=== PATIENT | female | born 1955 | race Caucasian/White ===

== ENCOUNTER 2018-06-10 12:41 | Emergency (ER) | payer OTHER ==
[2018-06-10 12:52] VITALS: BP 136/72; PULSE 98; TEMP 98.6; BMI 29.7
[2018-06-10] MEDS ORDERED: DEXAMETHASONE 4 MG TABLET (FP) PO ONE (14:07)
[2018-06-10] MEDS ORDERED: traMADol HCL 50 MG TABLET PO ONE (14:07)
--- NOTE | 2018-06-10 14:08 | PDOC ---
*Physical Exam - Vital Signs Last Vital Signs Temp Pulse Resp BP Pulse Ox 98.6 F 98 H 24 H 136/72 96 06/10/18 12:49 06/10/18 12:49 06/10/18 12:49 06/10/18 12:49 06/10/18 12:49 ED Treatment Course - LABORATORY CBC & Chemistry Diagram: 06/10/18 15:09 06/10/18 15:09 Medical Decision Making - Medical Decision Making 06/10/18 14:26 62 yo F presenting with a complaint of severe RUE arm pain radiating to the chest Pt pain management physician called states that the patient has a pinched nerve Will give pain meds will image Will re assess 06/10/18 18:34 Laboratory Tests 06/10/18 06/10/18 15:08 15:09 WBC 11.0 H Hgb 16.1 H Hct 45.7 H Plt Count 242 Creatine Kinase 65 Troponin I < 0.02 EKG:NSR rate of 8 bpm, axis nml, intervals nml, no st elevation or depression Pt pain still severe Will try treating with morphine Will re assess *DC/Admit/Observation/Transfer Diagnosis at time of Disposition: Cervical radiculopathy - Discharge Dispostion Disposition: HOME Condition at time of disposition: Stable - Prescriptions Prescriptions: Lidocaine 5% Patch [Lidoderm -] 1 patch TP DAILY #7 patch Oxycodone HCl/Acetaminophen [Percocet 5-325 mg Tablet] 1 tab PO Q6H #16 tablet MDD 4 - Referrals Referrals: Noelle Wright MD [Primary Care Provider] - - Patient Instructions Printed Discharge Instructions: DI for Cervical Radiculopathy Additional Instructions: You were evaluated for your arm and chest pain It is most likely due to your pinched nerve Take the Percocet every 6 hours as need for pain. Do not drink or drive after taking this medication as it may make you drowsy You were also prescribed lidocaine patches; place this over the area that hurts and change it daily Try heating packs as well Follow up with your orthopedic doctor Return to the ED if you have worsening pain, numbness and tingling, weakness, or if you have any changes in your symptoms. - Post Discharge Activity
--- NOTE | 2018-06-10 14:26 | PDOC ---
History of Present Illness - General Chief Complaint: Chest Pain Stated Complaint: CHEST PAIN Time Seen by Provider: 06/10/18 14:02 History Source: Patient Exam Limitations: No Limitations Past History - Travel Traveled outside of the country in the last 30 days: No Close contact w/someone who was outside of country & ill: No - Past Medical History Allergies/Adverse Reactions: Allergies Allergy/AdvReac Type Severity Reaction Status Date / Time latex Allergy Hives Verified 06/10/18 12:48 meperidine HCl [From Demerol] AdvReac Vomiting Verified 06/10/18 12:48 Home Medications: Ambulatory Orders Amitriptyline HCl [Elavil -] 50 mg PO HS 06/10/18 Lidocaine 5% Patch [Lidoderm -] 1 patch TP DAILY #7 patch 06/10/18 Oxycodone HCl 10 mg PO QID PRN 06/10/18 Oxycodone HCl/Acetaminophen [Percocet 5-325 mg Tablet] 1 tab PO Q6H #16 tablet MDD 4 06/10/18 COPD: No - Surgical History Appendectomy: Yes - Suicide/Smoking/Psychosocial Hx Smoking History: Never smoked Number of Cigarettes Smoked Daily: 0 Hx Alcohol Use: No Review of Systems - Review of Systems Able to Perform ROS?: Yes Comments:: 06/10/18 14:04 CONSTITUTIONAL: Absent: fever, chills, diaphoresis, generalized weakness, malaise, loss of appetite HEENT: Absent: rhinorrhea, nasal congestion, throat pain, throat swelling, difficulty swallowing, mouth swelling, ear pain, eye pain, visual Changes CARDIOVASCULAR: Absent: chest pain, loss of consciousness, palpitations, irregular heart rate, peripheral edema RESPIRATORY: Absent: cough, shortness of breath, dyspnea with exertion, orthopnea, wheezing, stridor, hemoptysis GASTROINTESTINAL: Absent: abdominal pain, abdominal distension, nausea, vomiting, diarrhea, constipation, melena, hematochezia GENITOURINARY: Absent: dysuria, frequency, urgency, hesitancy, hematuria, flank pain, genital pain MUSCULOSKELETAL: Absent: myalgia, arthralgia, joint swelling SKIN: Absent: rash, itching, pallor HEMATOLOGIC/IMMUNOLOGIC: Absent: easy bleeding, easy bruising, lymphadenopathy, frequent infections ENDOCRINE: Absent: unexplained weight gain, unexplained weight loss, heat intolerance, cold intolerance NEUROLOGIC: Absent: headache, focal weakness or paresthesias, dizziness, unsteady gait, seizure, mental status changes, bladder or bowel incontinence PSYCHIATRIC: Absent: anxiety, depression, suicidal or homicidal ideation, hallucinations. Is the patient limited Cambodian proficient: No *Physical Exam - Vital Signs Last Vital Signs Temp Pulse Resp BP Pulse Ox 98.6 F 98 H 24 H 136/72 96 06/10/18 12:49 06/10/18 12:49 06/10/18 12:49 06/10/18 12:49 06/10/18 12:49 - Physical Exam Comments: 06/10/18 14:04 GENERAL: Well developed, well nourished. Awake and alert. No acute distress. HEENT: Normocephalic, atraumatic. PERRLA, EOMI. No conjunctival pallor. Sclera are non- icteric. Moist mucous membranes. Oropharynx is clear. NECK: Supple. Full ROM. No JVD. Carotid pulses 2+ and symmetric, without bruits. No thyromegaly. No lymphadenopathy. CARDIOVASCULAR: Regular rate and rhythm. No murmurs, rubs, or gallops. Distal pulses are 2+ and symmetric. PULMONARY: No evidence of respiratory distress. Lungs clear to auscultation bilaterally. No wheezing, rales or rhonchi. ABDOMINAL: Soft. Non-tender. Non-distended. No rebound or guarding. No organomegaly. Normoactive bowel sounds. MUSCULOSKELETAL Normal range of motion at all joints. No bony deformities or tenderness. No CVA tenderness. EXTREMITIES: No cyanosis. No clubbing. No edema. No calf tenderness. SKIN: Warm and dry. Normal capillary refill. No rashes. No jaundice. NEUROLOGICAL: Alert, awake, appropriate. Cranial nerves 2-12 intact. No deficits to light touch and temperature in face, upper extremities and lower extremities. No motor deficits in the in face, upper extremities and lower extremities. Normoreflexic in the upper and lower extremities. Normal speech. Toes are down- going bilaterally. Gait is normal without ataxia. PSYCHIATRIC: Cooperative. Good eye contact. Appropriate mood and affect. Moderate Sedation - Procedure Monitoring Vital Signs: Procedure Monitoring Vital Signs Temperature 98.6 F 06/10/18 12:49 Pulse Rate 98 H 06/10/18 12:49 Respiratory Rate 24 H 06/10/18 12:49 Blood Pressure 136/72 06/10/18 12:49 O2 Sat by Pulse Oximetry (%) 96 06/10/18 12:49 ED Treatment Course - LABORATORY CBC & Chemistry Diagram: 06/10/18 15:09 06/10/18 15:09 *DC/Admit/Observation/Transfer Diagnosis at time of Disposition: Cervical radiculopathy - Discharge Dispostion Disposition: HOME Condition at time of disposition: Stable Decision to Admit order: No - Referrals Referrals: Noelle Wright MD [Primary Care Provider] - - Patient Instructions Printed Discharge Instructions: DI for Cervical Radiculopathy Additional Instructions: You were evaluated for your arm and chest pain It is most likely due to your pinched nerve Take the Percocet every 6 hours as need for pain. Do not drink or drive after taking this medication as it may make you drowsy You were also prescribed lidocaine patches; place this over the area that hurts and change it daily Try heating packs as well Follow up with your orthopedic doctor Return to the ED if you have worsening pain, numbness and tingling, weakness, or if you have any changes in your symptoms. - Post Discharge Activity
[2018-06-10] MEDS ORDERED: DEXAMETHASONE SOD PHOSPHATE 4 MG/1 ML VIAL ONE (15:08)
[2018-06-10] MEDS ORDERED: traMADol HCL 50 MG TABLET ONE (15:08)
[2018-06-10 15:33] LABS: BASO % 0.5 % (0-2.0); EOS % 0.3 % (0-4.5); HEMATOCRIT 45.7 % (32.4-45.2); HEMOGLOBIN 16.1 GM/dL (10.7-15.3); LYMPH % 27.8 % (8-40); MCH 30.6 pg (25.7-33.7); MCHC 35.3 g/dl (32.0-36.0); MEAN CELL VOLUME 86.8 fl (80-96); MEAN PLT VOLUME 7.7 fl (7.5-11.1); MONO % 7.7 % (3.8-10.2); NEUT % 63.7 % (42.8-82.8); PLATELET COUNT 242 K/MM3 (134-434); RBC 5.27 M/mm3 (3.60-5.2); RDW 14.5 % (11.6-15.6)
[2018-06-10 16:04] LABS: ALBUMIN 4.1 g/dl (3.4-5.0); ALK PHOS 55 U/L (45-117); ANION GAP 8 MMOL/L (8-16); BILIRUBIN,TOTAL 0.6 mg/dL (0.2-1); BLOOD UREA NITROGEN 22 mg/dL (7-18); CALCIUM 9.2 mg/dL (8.5-10.1); CHLORIDE 102 mmol/L (98-107); CO2 27 mmol/L (21-32); CREATININE 0.8 mg/dL (0.55-1.3); GLUCOSE,RANDOM 92 mg/dL (74-106); POTASSIUM 4.2 mmol/L (3.5-5.1); SGOT/AST 14 U/L (15-37); SGPT/ALT 34 U/L (13-61); SODIUM 137 mmol/L (136-145)
[2018-06-10 16:11] LABS: INR 0.94 (0.83-1.09); PROTHROMBIN TIME (PATIENT) 11.1 SEC (9.7-13.0)
[2018-06-10] MEDS ORDERED: morphine CARPU-JECT 2 MG/1 ML DISP.SYRIN IM ONE (17:44)
[2018-06-10] MEDS ORDERED: morphine SULFATE 4 MG/ML VIAL ONE (18:26)
--- NOTE | 2018-06-10 18:58 | EKG ---
Test Reason : Blood Pressure : / mmHG Vent. Rate : 088 BPM Atrial Rate : 088 BPM P-R Int : 144 ms QRS Dur : 084 ms QT Int : 332 ms P-R-T Axes : 064 067 072 degrees QTc Int : 401 ms POOR DATA QUALITY, INTERPRETATION MAY BE ADVERSELY AFFECTED NORMAL SINUS RHYTHM NORMAL ECG WHEN COMPARED WITH ECG OF 15-JAN-2012 14:43, NO SIGNIFICANT CHANGE WAS FOUND Confirmed by MANUEL ARITA MD ([id number]) on 06/10/2018 6:58:25 PM Referred By: Confirmed By:MANUEL ARITA MD
== END 2018-06-10 19:12 | disposition home or self-care (01) ==
LOC: JER 12:41
PROC: 3E023NZ Introduction of Analgesics, Hypnotics, Sedatives into Muscle, Percutaneous Approach (ICD-10-PCS; principal; 2018-06-10)
DX: M54.12 Radiculopathy, cervical region (principal)
CPT/HCPCS: 36415; 72125-TC; 72128-TC; 80053; 82550; 84484; 85025; 85610; 93005; 93010; 99283-25

== ENCOUNTER 2018-10-28 18:40 | Emergency (ER) | payer OTHER ==
[2018-10-28 18:58] VITALS: BP 118/55; PULSE 88; TEMP 98.2; BMI 29.7
--- NOTE | 2018-10-28 19:01 | PDOC ---
Rapid Medical Evaluation Chief Complaint: CVA/TIA Time Seen by Provider: 10/28/18 18:54 Medical Evaluation: Allergies Allergy/AdvReac Type Severity Reaction Status Date / Time latex Allergy Hives Verified 10/28/18 18:54 meperidine HCl [From Demerol] AdvReac Vomiting Verified 10/28/18 18:54 Vital Signs Temp Pulse Resp BP Pulse Ox 98.2 F 88 17 118/55 L 95 10/28/18 18:54 10/28/18 18:54 10/28/18 18:54 10/28/18 18:54 10/28/18 18:54 10/28/18 18:59 I have performed a brief in-person evaluation of this patient. The patient presents with a chief complaint of: c/o slurred speech acute onset at 9P, states has cont pain to left side of face and headache pain with radiation to left hand Pertinent physical exam findings: A&Ox3, no obv neuro deficit but speech some slurred I have ordered the following: Ct/ EkG / labs The patient will proceed to the ED for further evaluation. 10/28/18 19:00 Discharge Disposition - Diagnosis Transient ischemic attack - Referrals Referrals: Noelle Wright MD [Primary Care Provider] - - Patient Instructions - Post Discharge Activity
--- NOTE | 2018-10-28 20:00 | PDOC ---
History of Present Illness - General Chief Complaint: CVA/TIA Stated Complaint: NUMBNESS LEFT SIDE Time Seen by Provider: 10/28/18 18:54 History Source: Patient Exam Limitations: No Limitations - History of Present Illness Initial Comments: 10/28/18 20:15 63 year old female with PMH tension headaches (1X/month), chronic low back pain presented to ED for headache since last night. Pt stated her headache was gradual in onset, located to her forehead/left face, worsening over the day today. Pt stated her headaches are usually located to her forehead, wrapping around like a band, alleviated with excedrin. Pt stated she did not take excedrin today, because she wanted her symptoms to be present for the Emergency Department. Pt admitted to a 20 minute episode of left facial and left hand ( all fingertips) numbness yesterday, that self-resolved. Allergies: meperdine, latex NIH Stroke Scale - Last Known Well Date/Time & Onset Date Last Known Well: 10/27/18 - Initial Evaluation Level of consciousness: Alert Ask patient the month and their age: Answers both correctly Ask patient to open & close eyes; make fist and let go: Obeys both correctly Best gaze (horizontal eye movement): Normal Visual field testing: No visual field loss Facial paresis (Show teeth/raise eyebrows/close eyes tight): Normal symmetrical movement Motor Function: Left Arm: Normal Motor Function: Right Arm: Normal (extends arm 90 (or 45) degrees for 10 seconds without drift Motor Function: Left Leg: Normal (extends leg 30 degrees for 5 seconds without drift) Motor Function: Right Leg: Normal (extends leg 30 degrees for 5 seconds without drift) Limb Ataxia: No ataxia Sensory(Use pinprick test arms,legs,trunk,face/side to side): Normal Best language (Describe picture, name items, read sentences): No Aphasia Dysarthria (read several words): Normal articulation Extinction and Inattention: No abnormality - Total Score NIH Stroke Scale Score: 0 Past History - Past Medical History Allergies/Adverse Reactions: Allergies Allergy/AdvReac Type Severity Reaction Status Date / Time latex Allergy Hives Verified 10/28/18 18:54 meperidine HCl [From Demerol] AdvReac Vomiting Verified 10/28/18 18:54 Home Medications: Ambulatory Orders Amitriptyline HCl [Elavil -] 50 mg PO HS 06/10/18 Lidocaine 5% Patch [Lidoderm -] 1 patch TP DAILY #7 patch 06/10/18 Oxycodone HCl 10 mg PO QID PRN 06/10/18 Oxycodone HCl/Acetaminophen [Percocet 5-325 mg Tablet] 1 tab PO Q6H #16 tablet MDD 4 06/10/18 Valacyclovir HCl [Valtrex -] 1,000 mg PO TID #21 tablet 10/28/18 COPD: No - Surgical History Appendectomy: Yes - Suicide/Smoking/Psychosocial Hx Smoking History: Never smoked Number of Cigarettes Smoked Daily: 0 Information on smoking cessation initiated: No Hx Alcohol Use: No Drug/Substance Use Hx: No Review of Systems - Review of Systems Able to Perform ROS?: Yes Comments:: 10/28/18 20:18 General: denied fever, chills, generalized weakness. HEENT: denied sore throat, rhinorrhea, ear pain. Heart: denied chest pain, palpitations, syncope, diaphoresis. Respiratory: denied shortness of breath, cough, sputum production, hemoptysis. Abdomen: denied abdominal pain, nausea, vomiting, diarrhea, constipation, blood in stool. : denied dysuria, increased urinary frequency, hematuria, urinary incontinence , flank pain. Back: denied back pain. Musculoskeletal: denied joint pain, muscle pain, joint swelling. Neurological: admitted to headache, numbness. denied dizziness, tingling, weakness. Skin: denied rash, laceration, abrasion. *Physical Exam - Vital Signs Last Vital Signs Temp Pulse Resp BP Pulse Ox 98.2 F 88 17 118/55 L 95 10/28/18 18:54 10/28/18 18:54 10/28/18 18:54 10/28/18 18:54 10/28/18 18:54 - Physical Exam Comments: 10/28/18 20:21 Constitutional: Well-nourished, Well-developed, appearing stated age. HEENT: head is normocephalic, atraumatic. EOMI. PERRLA. Neck: supple. Full ROM. Heart: regular rhythm. no murmurs, rubs or gallops. Lungs: clear to auscultation bilaterally. no crackles, rhonchi or wheezing. no stridor. Abdomen: soft, nontender. normal bowel sounds. no rebound, guarding, masses. Extremities: peripheral pulses intact. no lower extremity edema. Neurological: alert. oriented x3. CN2-12 intact. 5/5 strength all extremities. no extremity drift. full and equal sensation all extremities and bilateral face. romberg negative. no ataxia. gait not observed. Psych: awake, alert, oriented x3. follows commands. answers questions appropriately. Skin: early vesicular like rash to left forehead. ED Treatment Course - LABORATORY CBC & Chemistry Diagram: 10/28/18 19:45 10/28/18 19:45 Medical Decision Making - Medical Decision Making 10/28/18 20:22 63 year old female with above PMH presented to ED for headache since last night , associated with a 20 minute episode of numbness to her left face and left fingertips (all fingers). Initial Vital Signs Temp Pulse Resp BP Pulse Ox 98.2 F 88 17 118/55 L 95 10/28/18 18:54 10/28/18 18:54 10/28/18 18:54 10/28/18 18:54 10/28/18 18:54 Afebrile. No tachycardia. No tachypnea. No hypertension. No hypoxia on room air. CBC WBC 5.6 K/mm3 (4.0-10.0) 10/28/18 19:45 RBC 4.65 M/mm3 (3.60-5.2) 10/28/18 19:45 Hgb 13.5 GM/dL (10.7-15.3) 10/28/18 19:45 Hct 40.8 % (32.4-45.2) 10/28/18 19:45 MCV 87.8 fl (80-96) 10/28/18 19:45 MCH 29.1 pg (25.7-33.7) 10/28/18 19:45 MCHC 33.1 g/dl (32.0-36.0) 10/28/18 19:45 RDW 13.7 % (11.6-15.6) 10/28/18 19:45 Plt Count 196 K/MM3 (134-434) 10/28/18 19:45 MPV 8.0 fl (7.5-11.1) 10/28/18 19:45 Absolute Neuts (auto) 3.2 K/mm3 (1.5-8.0) 10/28/18 19:45 Neutrophils % 57.7 % (42.8-82.8) 10/28/18 19:45 Lymphocytes % 30.4 % (8-40) 10/28/18 19:45 Monocytes % 9.0 % (3.8-10.2) 10/28/18 19:45 Eosinophils % 2.3 % (0-4.5) D 10/28/18 19:45 Basophils % 0.6 % (0-2.0) 10/28/18 19:45 Nucleated RBC % 0 % (0-0) 10/28/18 19:45 No leukocytosis. No anemia. 10/28/18 20:46 CT head report: negative for acute intracranial pathology. 10/28/18 21:39 CMP Sodium 136 mmol/L (136-145) 10/28/18 19:45 Potassium 4.7 mmol/L (3.5-5.1) 10/28/18 19:45 Chloride 103 mmol/L (98-107) 10/28/18 19:45 Carbon Dioxide 28 mmol/L (21-32) 10/28/18 19:45 Anion Gap 6 MMOL/L (8-16) L 10/28/18 19:45 BUN 23 mg/dL (7-18) H 10/28/18 19:45 Creatinine 1.0 mg/dL (0.55-1.3) 10/28/18 19:45 Est GFR (CKD-EPI)AfAm 69.92 10/28/18 19:45 Est GFR (CKD-EPI)NonAf 60.33 10/28/18 19:45 Random Glucose 109 mg/dL (74-106) H 10/28/18 19:45 Calcium 8.8 mg/dL (8.5-10.1) 10/28/18 19:45 Total Bilirubin 0.4 mg/dL (0.2-1) 10/28/18 19:45 AST 26 U/L (15-37) 10/28/18 19:45 ALT 38 U/L (13-61) 10/28/18 19:45 Alkaline Phosphatase 70 U/L (45-117) 10/28/18 19:45 Creatine Kinase 144 U/L (26-192) 10/28/18 19:45 Troponin I < 0.02 ng/ml (0.00-0.05) 10/28/18 19:45 Total Protein 7.0 g/dl (6.4-8.2) 10/28/18 19:45 Albumin 3.8 g/dl (3.4-5.0) 10/28/18 19:45 No electrolyte abnormalities. No ASIF. No transaminitis. Normal troponin. I spoke with Dr. Cintron about the patient, he recommends tele/obs for stroke workup. He recommends MRA/MRI. 10/28/18 21:55 Pt is refusing admission, risks explained to patient. Pt signed out AMA. Discharge medications prescribed: Valtrex Pt given ASA 81 mg prior to discharge. Pt given discharge paperwork. *DC/Admit/Observation/Transfer Diagnosis at time of Disposition: Transient ischemic attack, Left sided numbness, Headache, Shingles - Discharge Dispostion Disposition: AGAINST MEDICAL ADVICE Condition at time of disposition: Stable Decision to Admit order: Yes - Prescriptions Prescriptions: Valacyclovir HCl [Valtrex -] 1,000 mg PO TID #21 tablet - Referrals Referrals: Noelle Wright MD [Primary Care Provider] - - Patient Instructions Printed Discharge Instructions: DI for Shingles Additional Instructions: You were seen today for headache and numbness. Your lab work was normal. Your head CT was normal. It was advised by a neurologist that you be admitted for an MRI/MRA to rule out stroke. You signed out against medical advice. Follow up with your primary care doctor within 2-3 days. Your care is not complete until you follow up. Follow up with your neurologist within 2-3 days. Your care is not complete until you follow up. The rash to your forehead may be early shingles. I have sent a prescription to your pharmacy to treat it. Take as advised on label. Take tylenol for your headache, take as advised on label. Drink lots of fluids to stay hydrated. Get at least 8 hours of sleep at night. Return to the Emergency Department for weakness, numbness, tingling, increasing headache despite tylenol use, chest pain, shortness of breath, facial drooping or any other new, worsening or concerning symptoms. - Post Discharge Activity Forms/Work/School Notes: Back to Work
[2018-10-28 20:13] LABS: BASO % 0.6 % (0-2.0); EOS % 2.3 % (0-4.5); HEMATOCRIT 40.8 % (32.4-45.2); HEMOGLOBIN 13.5 GM/dL (10.7-15.3); LYMPH % 30.4 % (8-40); MCH 29.1 pg (25.7-33.7); MCHC 33.1 g/dl (32.0-36.0); MEAN CELL VOLUME 87.8 fl (80-96); NEUT % 57.7 % (42.8-82.8); PLATELET COUNT 196 K/MM3 (134-434); RBC 4.65 M/mm3 (3.60-5.2); RDW 13.7 % (11.6-15.6); WHITE BLOOD COUNT 5.6 K/mm3 (4.0-10.0)
[2018-10-28] MEDS ORDERED: SODIUM CHLORIDE 1,000 ML IV STA (20:15)
[2018-10-28] MEDS ORDERED: ACETAMINOPHEN 1000 MG/100 ML VIAL (NON FORMULARY) IVPB ONE (20:15)
[2018-10-28] MEDS ORDERED: METOCLOPRAMIDE HCL INJECTION 10 MG/2 ML VIAL IVPUSH ONE (20:15)
[2018-10-28] MEDS ORDERED: ACETAMINOPHEN INJECTION 100 ML IVPB ONE (20:26)
[2018-10-28] MEDS ORDERED: METOCLOPRAMIDE HCL INJECTION 10 MG/2 ML VIAL ONE (20:26)
[2018-10-28 20:38] LABS: INR 0.92 (0.83-1.09); PROTHROMBIN TIME (PATIENT) 10.8 SEC (9.7-13.0)
[2018-10-28 21:18] LABS: ALBUMIN 3.8 g/dl (3.4-5.0); ALK PHOS 70 U/L (45-117); ANION GAP 6 MMOL/L (8-16); BILIRUBIN,TOTAL 0.4 mg/dL (0.2-1); BLOOD UREA NITROGEN 23 mg/dL (7-18); CALCIUM 8.8 mg/dL (8.5-10.1); CHLORIDE 103 mmol/L (98-107); CO2 28 mmol/L (21-32); GLUCOSE,RANDOM 109 mg/dL (74-106); POTASSIUM 4.7 mmol/L (3.5-5.1); SGOT/AST 26 U/L (15-37); SGPT/ALT 38 U/L (13-61); SODIUM 136 mmol/L (136-145)
[2018-10-28] MEDS ORDERED: ASPIRIN 81 MG CHEWABLE TABLETS PO ONE (22:04)
[2018-10-28] MEDS ORDERED: ASPIRIN 81 MG CHEWABLE TABLETS ONE (22:06)
--- NOTE | 2018-10-28 22:14 | PDOC ---
Documentation entered by Nima Lange SCRIBE, acting as scribe for Kristel Jackson MD. Kristel Jackson MD: This documentation has been prepared by the Nazario bey Daniel, SCRIBE, under my direction and personally reviewed by me in its entirety. I confirm that the documentation accurately reflects all work, treatment, procedures, and medical decision making performed by me. Attending Attestation - Resident Resident Name: Rocio Edmondson - ED Attending Attestation I have performed the following: I have examined & evaluated the patient, The case was reviewed & discussed with the resident, I agree w/resident's findings & plan, Exceptions are as noted - HPI HPI: 10/28/18 21:01 The patient is a 63 year old female with a past medical history of tension headaches (once a month, better with excedrin) and chronic back pain here today for evaluation of headache. The patient reports that her headache began yesterday at about 9pm gradually and has been getting worse over the course of today. She states that her headache radiates from her left forehead down the left side of her face and towards the back of her head. She became concerned because her headaches are usually band like around her temples, not just left sided. Patient also notes one 20 minutes episode of slurred speech last night when the headache began a/w L finger tip tingling. She does not know how long these sxs lasted for because she fell asleep and when she woke up, the slurred speech and finger tingling had resolved. No treatments tried. No hx similar headache or slurred speech/finger tingling. Patient denies lightheadedness. Denies fever, chills. Denies chest pain, shortness of breath. Denies nausea, vomiting, diarrhea, abdominal pain. Allergies: latex, meperidine HCL PCP: Noelle Caballero - Physicial Exam PE: 10/28/18 21:57 GENERAL: Awake, alert, and fully oriented, in no acute distress HEAD: No signs of trauma EYES: PERRLA, EOMI, sclera anicteric, conjunctiva clear. Vision 20/20 OU ENT: Nares patent, oropharynx clear without exudates. Moist mucosa NECK: Normal ROM, supple, no lymphadenopathy, JVD, or masses. No meningismus LUNGS: Breath sounds equal, clear to auscultation bilaterally. No wheezes, and no crackles HEART: Regular rate and rhythm, normal S1 and S2, no murmurs, rubs or gallops ABDOMEN: Soft, nontender, normoactive bowel sounds. No guarding, no rebound. No masses EXTREMITIES: Normal range of motion, no edema. No clubbing or cyanosis. No cords, erythema, or tenderness NEUROLOGICAL: Normal speech, cranial nerves intact, negative pronator drift, 5/ 5 strength in all 4 extremities, normal sensation to light touch in all 4 extremities, normal cerebellar exam, normal gait, normal tone SKIN: L forehead with two erythematous papules, 1x2 cm papule to medial L brow with 2 small superimposed vesicles and one 2x2cm papule to lateral L brow with no vesicles. No lesions inside ear - Medical Decision Making 10/28/18 22:04 63yo F presents to the ED with gradual onset L sided headache/facial pain since last night as well as resolved slurred speech/L finger tip tingling. Vitals wnl Exam with neuro intact, comfortable appearing pt, but with possible early vesicular lesions to the L forehead concerning for shingles Will initiate valcyclovir With regards to transient slurred speech and finger tingling, our thought was possible atypical migraine vs TIA/CVA As such, we discussed case with Dr. Baker who recommended MRI/MRA for stroke w /u Plan discussed with pt who does not want to stay in the hospital overnight or wait for MRI Discussed the risks of leaving AMA, however pt wishes to leave and f/u with her own neurologist as an outpt The patient is clinically sober, free from distracting injury, appears to have intact insight and judgment and reason and in my opinion has the capacity to make decisions. The patient presents with headache, resolved slurred speech and finger tingling. I have explained that I am concerned that this may represent a stroke; she has verbalized an understanding of my concerns. I have told the patient that while her CT scan was normal, she could still have a stoke. I have discussed the need for admission and MRI/MRA to get more information about potential causes of the patients neuro symptoms. I have told the patient that if she leaves and the symptoms recur, she could get much worse, could become critically ill, and could possibly become disabled or . I have offered to give the patient more pain medication. The patient is not willing to undergo an MRI or admission. She is unwilling to stay overnight for monitoring. She is refusing any further care and is leaving against medical advice. I am unable to convince the patient to stay, I have asked her to return as soon as possible to complete her evaluation. I have answered all their questions.
--- NOTE | 2018-10-29 11:01 | EKG ---
Test Reason : Blood Pressure : / mmHG Vent. Rate : 084 BPM Atrial Rate : 084 BPM P-R Int : 164 ms QRS Dur : 082 ms QT Int : 366 ms P-R-T Axes : 051 057 060 degrees QTc Int : 432 ms POOR DATA QUALITY, INTERPRETATION MAY BE ADVERSELY AFFECTED NORMAL SINUS RHYTHM NORMAL ECG WHEN COMPARED WITH ECG OF 10-JUN-2018 12:46, NO SIGNIFICANT CHANGE WAS FOUND Confirmed by GADIEL BRITO MD ([id number]) on 10/29/2018 11:00:31 AM Referred By: Confirmed By:GADIEL BRITO MD
== END 2018-10-28 22:24 | disposition left against medical advice (07) ==
LOC: JER 18:40
PROC: 3E0337Z Introduction of Electrolytic and Water Balance Substance into Peripheral Vein, Percutaneous Approach (ICD-10-PCS; principal; 2018-10-28)
PROC: 3E033NZ Introduction of Analgesics, Hypnotics, Sedatives into Peripheral Vein, Percutaneous Approach (ICD-10-PCS; 2018-10-28)
PROC: 3E033GC Introduction of Other Therapeutic Substance into Peripheral Vein, Percutaneous Approach (ICD-10-PCS; 2018-10-28)
PROC: 3E033GC Introduction of Other Therapeutic Substance into Peripheral Vein, Percutaneous Approach (ICD-10-PCS; 2018-10-28)
DX: G45.8 Other transient cerebral ischemic attacks and related syndromes (principal); B02.9 Zoster without complications; R20.0 Anesthesia of skin
CPT/HCPCS: 36415; 70450-TC; 80053; 82550; 84484; 85025; 85610; 93005; 93010; 99283-25; J0131; J7030

== ENCOUNTER 2022-12-27 18:46 | Emergency (ER) | payer OTHER ==
[2022-12-27 18:57] VITALS: RESP 18; TEMP 99; BMI 28.1
[2022-12-27] MEDS ORDERED: ACETAMINOPHEN 1000 MG/100 ML BAG IVPB ONE (20:49)
[2022-12-27] MEDS ORDERED: ACETAMINOPHEN INJECTION 100 ML IVPB ONE (21:46)
[2022-12-27 22:11] LABS: BASO % 0.3 % (0-2.0); EOS % 1.5 % (0-4.5); HEMATOCRIT 42.6 % (32.4-45.2); HEMOGLOBIN 13.9 GM/dL (10.7-15.3); LYMPH % 32.8 % (8-40); MCH 29.4 pg (25.7-33.7); MCHC 32.7 g/dl (32.0-36.0); MEAN CELL VOLUME 89.9 fl (80-96); MEAN PLT VOLUME 7.5 fl (7.5-11.1); MONO % 4.7 % (3.8-10.2); NEUT % 60.7 % (42.8-82.8); PLATELET COUNT 224 10^3/uL (134-434); RBC 4.74 M/mm3 (3.60-5.2); RDW 14.3 % (11.6-15.6)
[2022-12-27 22:18] LABS: INR 0.97 (0.83-1.09); PROTHROMBIN TIME (PATIENT) 11.3 SEC (9.7-13.0)
[2022-12-27 22:21] LABS: ACTIVATED PTT 30.6 SECONDS (25.2-36.5)
[2022-12-27 22:31] LABS: ALBUMIN 3.4 g/dl (3.4-5.0); BLOOD UREA NITROGEN 19.8 mg/dL (7-18); CALCIUM 8.8 mg/dL (8.5-10.1)
[2022-12-27 22:35] LABS: BILIRUBIN,TOTAL 0.3 mg/dL (0.2-1); TOT PROT 6.7 g/dl (6.4-8.2)
[2022-12-27 22:53] VITALS: BP 160/72; PULSE 73
== END 2022-12-28 | disposition home or self-care (01) ==
LOC: JER 18:46
PROC: 3E033NZ Introduction of Analgesics, Hypnotics, Sedatives into Peripheral Vein, Percutaneous Approach (ICD-10-PCS; principal; 2022-12-27)
DX: R60.0 Localized edema (principal); M79.605 Pain in left leg
CPT/HCPCS: 36415; 73562-TC-LT-FY; 80053; 85025; 85610; 85730; 93005; 93010; 93971-TC